=== PATIENT | female | born 1985 | race Caucasian/White ===

== ENCOUNTER 2016-10-14 13:35 | Emergency (ER) | payer MEDICAID, OTHER ==
[2016-10-14 13:43] VITALS: PULSE 79; TEMP 98.1
[2016-10-14] MEDS ORDERED: ONDANSETRON 4 MG/2 ML VIAL IVP ONE (13:53)
[2016-10-14] MEDS ORDERED: ONDANSETRON 4 MG/2 ML VIAL ONE (13:55)
[2016-10-14 14:18] LABS: % IMMATURE GRANULYOCYTES 0.4 % (0.0-1.1); ABSOLUTE IMMATURE GRANULOCYTES 0.03 10^3/uL (0.00-0.10); ADD DIFF? NO; ADD MORPH? NO; ADD SCAN? NO; ATYPICAL LYMPHOCYTE FLAG 20 (0-99); FRAGMENT RBC FLAG 0 (0-99); HEMATOCRIT 34.3 % (38.0-47.0); HEMOGLOBIN 11.9 g/dL (12.6-16.3); LEFT SHIFT FLG 0 (0-99); LIPEMIA HEMOLYSIS FLAG 90 (0-99); MEAN CELL HEMOGLOBIN 30.6 pg (27.9-34.1); MEAN CELL HEMOGLOBIN CONCENTR. 34.7 g/dL (32.4-36.7); MEAN CELL VOLUME 88.2 fL (81.5-99.8); PLATELET CLUMPS FLAG 10 (0-99); PLATELET COUNT 206 10^3/uL (150-400); RED BLOOD CELL COUNT 3.89 10^6/uL (4.18-5.33); RED CELL DISTRIBUTION WIDTH 12.6 % (11.5-15.2)
[2016-10-14] MEDS ORDERED: HYDROmorphONE/DILAUDID 1 MG/ML SYR ONE (14:25)
[2016-10-14] MEDS ORDERED: HYDROmorphONE/DILAUDID 1 MG/ML SYR IVP ONE (14:30)
[2016-10-14 14:37] LABS: ANION GAP 12 mEq/L (8-16); CALCIUM 9.2 mg/dL (8.5-10.4); CARBON DIOXIDE 20 mEq/l (22-31); CHLORIDE 108 mEq/L (97-110); CREATININE 0.6 mg/dL (0.6-1.0); GLOMERULAR FILTRATION RATE > 60; GLUCOSE 84 mg/dL (70-100); POTASSIUM 3.9 mEq/L (3.5-5.2); SODIUM 140 mEq/L (134-144)
--- NOTE | 2016-10-14 15:09 | EDPHY ---
H & P Time Seen by Provider: 10/14/16 14:49 HPI/ROS: CHIEF COMPLAINT: Abdominal pain after laparoscopic surgery HISTORY OF PRESENT ILLNESS: 31-year-old female presents with abdominal pain. She had laparoscopic surgery by Dr. Michelle 3 days ago for endometriosis. When she awoke from surgery, she had excruciating pain. The pain has gradually worsened since then and is persistent. The pain is aggravated by deep inspiration. No relief with Percocet every 6 hours and ibuprofen every 6 hours. Associated with abdominal bloating. Tolerating oral fluids and food well. No bowel movement since surgery. REVIEW OF SYSTEMS: Constitutional: No fever, no chills Eyes: No visual changes ENT: No sore throat Respiratory: No cough Cardiac: No chest pain Gastrointestinal: No nausea, no vomiting Genitourinary: no dysuria Musculoskeletal: No leg pain or swelling Skin: No rash Neurological: No headache, no weakness Psychiatric: No depression Past Medical/Surgical History: Endometriosis Social History: Single Smoking Status: Never smoked Physical Exam: General Appearance: Alert, appears in pain Eyes: Pupils equal and round, no conjunctival pallor ENT, Mouth: Mucous membranes moist Neck: Normal inspection Respiratory: Lungs are clear to auscultation Cardiovascular: Regular rate and rhythm Gastrointestinal: Abdomen is distended, diffuse tenderness, decreased bowel sounds Neurological: A&O, nonfocal exam Skin: Warm and dry Extremities: Nontender, no pedal edema Psychiatric: Mood and affect normal Constitutional: Initial Vital Signs Temperature (C) 36.7 C 10/14/16 13:40 Heart Rate 79 10/14/16 13:40 Respiratory Rate 18 10/14/16 13:40 Blood Pressure 105/74 10/14/16 13:40 O2 Sat (%) 97 10/14/16 13:40 O2 Delivery Mode Room Air Allergies/Adverse Reactions: No Known Allergies Allergy (Unverified 10/14/16 13:38) Home Medications: Medication Instructions Recorded Docusate Sodium 10/14/16 Percocet 7.5-325 mg Tablet 10/14/16 oxyCODONE HCL/ACETAMINOPHEN 1 - 2 tab PO Q4 PRN #15 tablet 10/14/16 [Percocet 10-325 mg Tablet] Medical Decision Making - Diagnostics Imaging: CT scan of the abdomen and pelvis read by the radiologist reveals free air, small amount of free fluid and constipation. No evidence of abscess. ED Course/Re-evaluation: Patient presents with severe abdominal pain after the laparoscopic surgery. Dilaudid, Benadryl and Zofran IV given with relief in pain, feels much better. CT results d/w pt. Admission offered because of pain severity. Pt declines. Will increase pain medication and have pt f/u in 1day with Dr. Michelle. Abd exam distended, less tenderness on d/c. Differential Diagnosis: Differential diagnosis includes though it is not limited to appendicitis, cholecystitis, diverticulitis, pyelonephritis, bowel perforation, small bowel obstruction. - Data Points Laboratory Results: Laboratory Results 10/14/16 14:05 10/14/16 14:05 Medications Given: Discontinued Medications Diphenhydramine HCl (Benadryl Injection) 25 mg IVP EDNOW ONE Stop: 10/14/16 14:31 Last Admin: 10/14/16 14:30 Dose: 25 mg Hydromorphone HCl (Dilaudid) 1 mg IVP EDNOW ONE Stop: 10/14/16 14:31 Last Admin: 10/14/16 14:30 Dose: 1 mg Sodium Chloride (Ns) 1,000 mls @ 0 mls/hr IV ONCE ONE PRN Reason: Wide Open Stop: 10/14/16 15:56 Last Admin: 10/14/16 16:12 Dose: 1,000 mls Ketorolac Tromethamine (Toradol) 30 mg IVP EDNOW ONE Stop: 10/14/16 15:56 Last Admin: 10/14/16 16:05 Dose: 30 mg Magnesium Citrate (Magnesium Citrate) 300 ml PO ONCE ONE Stop: 10/14/16 16:29 Last Admin: 10/14/16 16:39 Dose: 1 btl Ondansetron HCl (Zofran) 4 mg IVP EDNOW ONE Stop: 10/14/16 13:54 Last Admin: 10/14/16 14:13 Dose: 4 mg Departure - Departure Disposition: Home, Routine, Self-Care Clinical Impression: Postoperative abdominal pain Condition: Good Instructions: Abdominal Pain (ED) Additional Instructions: Continue stool softeners. Increase fluid intake. Take Magnesium citrate when you get home. Return for worsening symptoms or any concerns. Referrals: Ganesh Michelle MD [Medical Doctor] - 1 day without fail Prescriptions: oxyCODONE HCL/ACETAMINOPHEN [Percocet 10-325 mg Tablet] 1 - 2 tab PO Q4 PRN #15 tablet PRN Reason: pain
[2016-10-14] MEDS ORDERED: IOPAMIDOL (ISOVUE-300) 100 ML BTL IV ONE (15:16)
[2016-10-14] MEDS ORDERED: KETOROLAC 30 MG/1 ML SDV IVP ONE (15:55)
[2016-10-14] MEDS ORDERED: NS 1,000 ML IV ONE (15:55)
[2016-10-14 15:56] LABS: COLOR YELLOW; LEUKOCYTE ESTERASE,URINE NEGATIVE (NEGATIVE); NITRITE,URINE NEGATIVE (NEGATIVE)
[2016-10-14 16:02] LABS: MUCUS TRACE /lpf (NONE-1+)
[2016-10-14 16:12] VITALS: BP 106/82; RESP 17; O2SAT 95
[2016-10-14] MEDS ORDERED: MAGNESIUM CITRATE 300 ML BOTTLE PO ONE (16:28)
== END 2016-10-14 14:50 | disposition home or self-care (01) ==
DX: G89.18 Other acute postprocedural pain (principal); R10.84 Generalized abdominal pain
CPT/HCPCS: 96374; J1170; J1200; J1885; J2405; Q9967